=== PATIENT | female | born 1940 | race Two or more races ===

== ENCOUNTER → 2017-04-15 10:11 | Outpatient (CLI) | payer OTHER ==
[~2017-04-15 10:11] MED LIST: ATACAND32 MG; CEFTIN500 MG PO; COREG CR10 MG; CRESTOR10 MG; FLONASE16 G1 NS; FLONASE16 GM; MUCINEX600 MG PO; NORVASC5 MG; SYNTHROID50 MCG
== END | disposition home or self-care (01) ==
LOC: PPHC 10:11
DX: R05 Cough (principal)

== ENCOUNTER 2017-05-12 07:06 | Outpatient (CLI) | payer OTHER | END 2017-05-12 07:51 | disposition home or self-care (01) | LOC: LAB 07:06 | DX: I10 Essential (primary) hypertension (principal); E11.9 Type 2 diabetes mellitus without complications; C73 Malignant neoplasm of thyroid gland; E03.8 Other specified hypothyroidism; D59.8 Other acquired hemolytic anemias ==

== ENCOUNTER 2017-06-12 13:37 | Outpatient (CLI) | payer OTHER | END 2017-06-12 13:39 | disposition home or self-care (01) | LOC: NUCLEAR 13:37 | DX: M81.0 Age-related osteoporosis without current pathological fracture (principal) ==

== ENCOUNTER 2017-09-18 06:51 | Outpatient (CLI) | payer OTHER | END 2017-09-18 06:59 | disposition home or self-care (01) | LOC: LAB 06:51 | DX: C73 Malignant neoplasm of thyroid gland (principal); E03.8 Other specified hypothyroidism; E11.65 Type 2 diabetes mellitus with hyperglycemia; I10 Essential (primary) hypertension; E78.2 Mixed hyperlipidemia ==

== ENCOUNTER 2017-09-18 09:09 | Outpatient (CLI) | payer OTHER | END 2017-09-18 09:19 | disposition home or self-care (01) | LOC: RAD 09:09 | DX: Z96.652 Presence of left artificial knee joint (principal); E07.89 Other specified disorders of thyroid ==

== ENCOUNTER → 2018-03-24 07:02 | Outpatient (CLI) | payer OTHER | END | disposition home or self-care (01) | LOC: LAB 07:02 | DX: C73 Malignant neoplasm of thyroid gland (principal); E11.65 Type 2 diabetes mellitus with hyperglycemia; I10 Essential (primary) hypertension; E03.8 Other specified hypothyroidism; M83.8 Other adult osteomalacia; E20.8 Other hypoparathyroidism ==

== ENCOUNTER 2018-04-16 09:00 | Outpatient (CLI) | payer OTHER | END 2018-04-16 09:07 | disposition home or self-care (01) | LOC: RAD 09:00 | DX: S30.0XXA Contusion of lower back and pelvis, initial encounter (principal); M54.5 Low back pain ==

== ENCOUNTER → 2018-04-16 | Outpatient (CLI) | payer OTHER | END | disposition home or self-care (01) | LOC: NUCLEAR 08:33 | DX: S30.0XXA Contusion of lower back and pelvis, initial encounter (principal); M54.5 Low back pain | CPT/HCPCS: 78306; A9503 ==

== ENCOUNTER → 2018-07-06 | Outpatient (CLI) | payer OTHER | END | disposition home or self-care (01) | LOC: MAMO-SONO 14:15 → SONOGRAMA 14:32 | DX: R22.1 Localized swelling, mass and lump, neck (principal) ==

== ENCOUNTER 2018-07-13 14:23 | Outpatient (CLI) | payer OTHER | END 2018-07-13 14:31 | disposition home or self-care (01) | LOC: RAD 14:23 | DX: M25.562 Pain in left knee (principal) ==

== ENCOUNTER → 2018-08-04 06:41 | Outpatient (CLI) | payer OTHER | END | disposition home or self-care (01) | LOC: LAB 06:41 | DX: E78.2 Mixed hyperlipidemia (principal); C73 Malignant neoplasm of thyroid gland; E03.8 Other specified hypothyroidism; E11.65 Type 2 diabetes mellitus with hyperglycemia ==

== ENCOUNTER 2018-12-01 06:39 | Outpatient (CLI) | payer OTHER | END 2018-12-01 06:44 | disposition home or self-care (01) | LOC: LAB 06:39 | DX: R00.2 Palpitations (principal); E78.2 Mixed hyperlipidemia; E11.9 Type 2 diabetes mellitus without complications; I11.9 Hypertensive heart disease without heart failure ==

== ENCOUNTER 2018-12-07 14:00 | Outpatient (CLI) | payer OTHER | END 2018-12-07 14:02 | disposition home or self-care (01) | LOC: RAD 14:00 | DX: M17.0 Bilateral primary osteoarthritis of knee (principal) ==

== ENCOUNTER 2019-02-22 06:37 | Outpatient (CLI) | payer OTHER | END 2019-02-22 06:53 | disposition home or self-care (01) | LOC: LAB 06:37 | DX: E03.8 Other specified hypothyroidism (principal); C73 Malignant neoplasm of thyroid gland; I10 Essential (primary) hypertension ==

== ENCOUNTER 2019-02-24 14:14 | Outpatient (CLI) | payer OTHER | END 2019-02-24 14:21 | disposition home or self-care (01) | LOC: SONOGRAMA 14:14 → MAMO-SONO 14:15 → SONOGRAMA 14:21 | DX: C73 Malignant neoplasm of thyroid gland (principal) ==

== ENCOUNTER 2019-06-24 06:44 | Outpatient (CLI) | payer OTHER | END 2019-06-24 06:49 | disposition home or self-care (01) | LOC: LAB 06:44 | DX: E78.2 Mixed hyperlipidemia (principal); C73 Malignant neoplasm of thyroid gland; E11.65 Type 2 diabetes mellitus with hyperglycemia ==

== ENCOUNTER 2019-11-29 06:44 | Outpatient (CLI) | payer OTHER | END 2019-11-29 06:53 | disposition home or self-care (01) | LOC: LAB 06:44 | PROVIDERS: ATTEND Internal Medicine Endocrinology, Diabetes & Metabolism | DX: C73 Malignant neoplasm of thyroid gland (principal); E78.2 Mixed hyperlipidemia; I10 Essential (primary) hypertension; E03.8 Other specified hypothyroidism; E11.65 Type 2 diabetes mellitus with hyperglycemia; M83.8 Other adult osteomalacia ==

== ENCOUNTER 2019-12-01 08:27 | Outpatient (CLI) | payer OTHER | END 2019-12-01 08:36 | disposition home or self-care (01) | LOC: SONOGRAMA 08:27 | PROVIDERS: ATTEND Internal Medicine Endocrinology, Diabetes & Metabolism | DX: E03.8 Other specified hypothyroidism (principal); C73 Malignant neoplasm of thyroid gland ==

== ENCOUNTER 2020-01-27 10:27 | Outpatient (CLI) | payer OTHER | END 2020-01-27 10:32 | disposition home or self-care (01) | LOC: MAMO-SONO 10:27 | PROVIDERS: ATTEND Obstetrics & Gynecology | DX: Z12.31 Encounter for screening mammogram for malignant neoplasm of breast (principal); N60.11 Diffuse cystic mastopathy of right breast ==

== ENCOUNTER 2020-03-03 07:26 | Outpatient (CLI) | payer OTHER | END 2020-03-03 07:33 | disposition home or self-care (01) | LOC: LAB 07:26 | PROVIDERS: ATTEND Internal Medicine | DX: I10 Essential (primary) hypertension (principal); M54.5 Low back pain; Z01.810 Encounter for preprocedural cardiovascular examination; E03.8 Other specified hypothyroidism; E78.89 Other lipoprotein metabolism disorders; E11.51 Type 2 diabetes mellitus with diabetic peripheral angiopathy without gangrene; E55.9 Vitamin D deficiency, unspecified; E66.8 Other obesity; G62.89 Other specified polyneuropathies ==

== ENCOUNTER 2020-05-08 13:33 | Outpatient (CLI) | payer OTHER | END 2020-05-08 13:38 | disposition HB | LOC: RAD 13:33 | PROVIDERS: ATTEND Physical Medicine & Rehabilitation | DX: M51.37 Other intervertebral disc degeneration, lumbosacral region (principal); M54.5 Low back pain; M54.16 Radiculopathy, lumbar region ==

== ENCOUNTER 2020-06-14 06:33 | Outpatient (CLI) | payer OTHER | END 2020-06-14 06:38 | disposition home or self-care (01) | LOC: LAB 06:33 | PROVIDERS: ATTEND Internal Medicine | DX: I10 Essential (primary) hypertension (principal); M54.5 Low back pain; E03.8 Other specified hypothyroidism; E78.89 Other lipoprotein metabolism disorders; E55.9 Vitamin D deficiency, unspecified; E66.8 Other obesity; G62.89 Other specified polyneuropathies ==

== ENCOUNTER 2020-06-16 10:15 | Outpatient (CLI) | payer OTHER | END 2020-06-16 15:00 | disposition home or self-care (01) | LOC: LAB 10:15 | PROVIDERS: ATTEND Internal Medicine | DX: I10 Essential (primary) hypertension (principal); M54.5 Low back pain; E03.8 Other specified hypothyroidism; E78.89 Other lipoprotein metabolism disorders; E55.9 Vitamin D deficiency, unspecified; E66.8 Other obesity; G62.89 Other specified polyneuropathies ==

== ENCOUNTER 2020-06-29 16:19 | Outpatient (CLI) | payer OTHER | END 2020-06-29 16:46 | disposition home or self-care (01) | LOC: RAD 16:19 | PROVIDERS: ATTEND Orthopaedic Surgery Adult Reconstructive Orthopaedic Surgery | DX: M17.11 Unilateral primary osteoarthritis, right knee (principal); I11.9 Hypertensive heart disease without heart failure; Z96.652 Presence of left artificial knee joint ==

== ENCOUNTER → 2020-07-19 06:49 | Outpatient (CLI) | payer OTHER | END | disposition home or self-care (01) | LOC: LAB 06:49 | PROVIDERS: ATTEND Orthopaedic Surgery Adult Reconstructive Orthopaedic Surgery | DX: I11.9 Hypertensive heart disease without heart failure (principal); D68.8 Other specified coagulation defects ==

== ENCOUNTER → 2020-09-22 06:52 | Outpatient (CLI) | payer OTHER | END | disposition home or self-care (01) | LOC: LAB 06:52 | PROVIDERS: ATTEND Internal Medicine Endocrinology, Diabetes & Metabolism | DX: C73 Malignant neoplasm of thyroid gland (principal); E11.65 Type 2 diabetes mellitus with hyperglycemia; I10 Essential (primary) hypertension ==

== ENCOUNTER → 2020-11-23 14:21 | Outpatient (CLI) | payer OTHER | END | disposition home or self-care (01) | LOC: RAD 14:21 | PROVIDERS: ATTEND Orthopaedic Surgery Adult Reconstructive Orthopaedic Surgery | DX: M25.562 Pain in left knee (principal); M25.561 Pain in right knee; Z96.653 Presence of artificial knee joint, bilateral ==

== ENCOUNTER → 2020-12-26 06:30 | Outpatient (CLI) | payer OTHER | END | disposition home or self-care (01) | LOC: LAB 06:30 | PROVIDERS: ATTEND Emergency Medicine Pediatric Emergency Medicine | DX: I10 Essential (primary) hypertension (principal); M54.5 Low back pain; E03.8 Other specified hypothyroidism; E78.89 Other lipoprotein metabolism disorders; E55.9 Vitamin D deficiency, unspecified; E66.8 Other obesity; G62.89 Other specified polyneuropathies ==

== ENCOUNTER 2020-12-29 15:26 | Outpatient (CLI) | payer OTHER | END 2020-12-29 15:35 | disposition home or self-care (01) | LOC: RAD 15:26 | PROVIDERS: ATTEND Ophthalmology | DX: R07.89 Other chest pain (principal); Z98.41 Cataract extraction status, right eye; H25.011 Cortical age-related cataract, right eye ==

== ENCOUNTER 2021-01-01 15:01 | Outpatient (CLI) | payer OTHER | END 2021-01-01 15:52 | disposition home or self-care (01) | LOC: LAB 15:01 | PROVIDERS: ATTEND Ophthalmology | DX: D68.8 Other specified coagulation defects (principal); H25.011 Cortical age-related cataract, right eye ==

== ENCOUNTER 2021-01-19 14:05 | Outpatient (CLI) | payer OTHER | END 2021-01-19 14:30 | disposition home or self-care (01) | LOC: PPH VACUNA 14:05 | PROVIDERS: ATTEND Emergency Medicine Pediatric Emergency Medicine | DX: Z23 Encounter for immunization (principal) ==

== ENCOUNTER 2021-02-27 10:42 | Outpatient (CLI) | payer OTHER | END 2021-02-27 13:43 | disposition home or self-care (01) | LOC: MAMO-SONO 10:42 | PROVIDERS: ATTEND Obstetrics & Gynecology | DX: N60.01 Solitary cyst of right breast (principal); R92.1 Mammographic calcification found on diagnostic imaging of breast; N60.11 Diffuse cystic mastopathy of right breast; Z12.31 Encounter for screening mammogram for malignant neoplasm of breast ==

== ENCOUNTER 2021-03-29 06:42 | Outpatient (CLI) | payer OTHER | END 2021-03-29 06:50 | disposition home or self-care (01) | LOC: LAB 06:42 | PROVIDERS: ATTEND Internal Medicine | DX: N39.0 Urinary tract infection, site not specified (principal); B96.4 Proteus (mirabilis) (morganii) as the cause of diseases classified elsewhere; I10 Essential (primary) hypertension; M54.59 Other low back pain; E03.8 Other specified hypothyroidism; E78.89 Other lipoprotein metabolism disorders; E55.9 Vitamin D deficiency, unspecified; E66.8 Other obesity; G62.89 Other specified polyneuropathies ==

== ENCOUNTER 2021-06-25 06:25 | Outpatient (CLI) | payer OTHER | END 2021-06-25 06:26 | disposition home or self-care (01) | LOC: LAB 06:25 | PROVIDERS: ATTEND Internal Medicine | DX: I10 Essential (primary) hypertension (principal); M54.50 Low back pain, unspecified; E03.9 Hypothyroidism, unspecified; E78.9 Disorder of lipoprotein metabolism, unspecified; E55.9 Vitamin D deficiency, unspecified; E66.8 Other obesity; G62.9 Polyneuropathy, unspecified; N39.0 Urinary tract infection, site not specified ==

== ENCOUNTER 2021-08-21 08:00 | Outpatient (CLI) | payer OTHER | END 2021-08-21 08:30 | disposition home or self-care (01) | LOC: PPH VACUNA 08:00 | PROVIDERS: ATTEND Emergency Medicine Pediatric Emergency Medicine | DX: Z23 Encounter for immunization (principal); Z71.85 Encounter for immunization safety counseling ==

== ENCOUNTER → 2021-10-17 06:20 | Outpatient (CLI) | payer OTHER | END | disposition home or self-care (01) | LOC: LAB 06:20 | PROVIDERS: ATTEND Internal Medicine | DX: I10 Essential (primary) hypertension (principal); M54.50 Low back pain, unspecified; E03.9 Hypothyroidism, unspecified; E78.9 Disorder of lipoprotein metabolism, unspecified; E55.9 Vitamin D deficiency, unspecified; E66.8 Other obesity; G62.9 Polyneuropathy, unspecified; N39.0 Urinary tract infection, site not specified; Z12.31 Encounter for screening mammogram for malignant neoplasm of breast; Z13.820 Encounter for screening for osteoporosis; Z12.11 Encounter for screening for malignant neoplasm of colon ==

== ENCOUNTER 2021-10-17 09:56 | Outpatient (CLI) | payer OTHER | END 2021-10-17 09:57 | disposition home or self-care (01) | LOC: NUCLEAR 09:56 | PROVIDERS: ATTEND Internal Medicine | DX: Z13.820 Encounter for screening for osteoporosis (principal); I10 Essential (primary) hypertension; M54.59 Other low back pain; E03.9 Hypothyroidism, unspecified; E78.9 Disorder of lipoprotein metabolism, unspecified; E55.9 Vitamin D deficiency, unspecified; E66.8 Other obesity; G62.9 Polyneuropathy, unspecified; N39.0 Urinary tract infection, site not specified; Z12.31 Encounter for screening mammogram for malignant neoplasm of breast; Z12.11 Encounter for screening for malignant neoplasm of colon ==

== ENCOUNTER 2022-01-17 06:30 | Outpatient (CLI) | payer OTHER | END 2022-01-17 06:31 | disposition home or self-care (01) | LOC: LAB 06:30 | PROVIDERS: ATTEND Internal Medicine | DX: M54.50 Low back pain, unspecified (principal); I10 Essential (primary) hypertension; E03.9 Hypothyroidism, unspecified; E78.9 Disorder of lipoprotein metabolism, unspecified; E55.9 Vitamin D deficiency, unspecified; E66.8 Other obesity; G62.9 Polyneuropathy, unspecified; N39.0 Urinary tract infection, site not specified; Z12.31 Encounter for screening mammogram for malignant neoplasm of breast; Z13.820 Encounter for screening for osteoporosis; Z12.11 Encounter for screening for malignant neoplasm of colon ==

== ENCOUNTER 2022-08-05 06:31 | Outpatient (CLI) | payer OTHER | END 2022-08-05 06:34 | disposition home or self-care (01) | LOC: LAB 06:31 | PROVIDERS: ATTEND Internal Medicine | DX: I10 Essential (primary) hypertension (principal); E03.9 Hypothyroidism, unspecified; E78.9 Disorder of lipoprotein metabolism, unspecified; E55.9 Vitamin D deficiency, unspecified; E66.8 Other obesity; G62.9 Polyneuropathy, unspecified; N39.0 Urinary tract infection, site not specified; Z12.11 Encounter for screening for malignant neoplasm of colon; M54.59 Other low back pain; Z12.31 Encounter for screening mammogram for malignant neoplasm of breast; Z13.820 Encounter for screening for osteoporosis ==

== ENCOUNTER 2022-08-09 16:27 | Outpatient (CLI) | payer OTHER | END 2022-08-09 16:33 | disposition home or self-care (01) | LOC: LAB 16:27 | PROVIDERS: ATTEND Internal Medicine | DX: Z12.11 Encounter for screening for malignant neoplasm of colon (principal) ==

== ENCOUNTER 2022-11-15 06:42 | Outpatient (CLI) | payer OTHER | END 2022-11-15 06:44 | disposition home or self-care (01) | LOC: LAB 06:42 | PROVIDERS: ATTEND Internal Medicine | DX: I10 Essential (primary) hypertension (principal); M54.59 Other low back pain; E03.9 Hypothyroidism, unspecified; E78.9 Disorder of lipoprotein metabolism, unspecified; E55.9 Vitamin D deficiency, unspecified; E66.8 Other obesity; G62.9 Polyneuropathy, unspecified; N39.0 Urinary tract infection, site not specified; Z12.31 Encounter for screening mammogram for malignant neoplasm of breast; Z13.820 Encounter for screening for osteoporosis; Z12.11 Encounter for screening for malignant neoplasm of colon ==

== ENCOUNTER 2023-03-10 06:10 | Outpatient (CLI) | payer OTHER ==
[2023-03-10 07:48] LABS: URINE APPEARANCE Clear; URINE BILIRRUBIN Negative (NEGATIVE); URINE BLOOD Small; URINE COLOR Yellow; URINE GLUCOSE Negative (NEGATIVE); URINE LEUKOCYTE Moderate; URINE NITRATE Negative; URINE PROTEIN Negative (NEGATIVE); URINE UROBILINOGEN 0.2 E.U./dl
[2023-03-10 07:52] LABS: URINE EPITHELIAL CELLS 10.3 uL (0.0-38.8); URINE RBC 7.4 uL (0.0-20.8); URINE WBC 234.6 uL (0.0-23.2)
[2023-03-10 08:01] LABS: HEMOGLOBIN 14.6 g/dL (12.0-15.00); MEAN CELL VOLUME 86.4 fL (80.00-100.00); MEAN CORPUSCULAR HEMOGLOBIN 29.5 pg (27.00-32.0); MEAN CORPUSCULAR HGB CONC 34.1 g/dl (32.0-36.0); PLATELET COUNT 130 K/uL (150-450); RED BLOOD COUNT 4.97 M/uL (4.00-6.00); RED CELL DISTRIBUTION WIDTH 14.1 % (11.5-14.5)
[2023-03-10 08:05] LABS: URINE BACTERIA > 9821.5 uL (0.0-1933)
[2023-03-10 08:56] LABS: ALBUMIN 3.7 gm/dL (3.4-5.0); BILIRUBIN TOTAL 1.21 mg/dL (0.3-1.2); CALCIUM 8.8 mg/dL (8.5-10.1); CHOL HDL RATIO 3.5 (0-5.0); CREATININE SERUM 0.81 mg/dL (0.55-1.02); GFR 67.36; GLOBULINA 3.1 G/DL (2.4-3.5); POTASSIUM 4.1 mEq/L (3.5-5.1); T4 TOTAL 10.63 UG/DL (4.8-13.9); TOTAL PROTEIN 6.8 gm/dL (6.4-8.2); TSH 0.393 uIU/mL (0.358-3.74)
== END 2023-03-10 06:17 | disposition home or self-care (01) ==
LOC: LAB 06:10
PROVIDERS: ATTEND Internal Medicine
DX: I10 Essential (primary) hypertension (principal); M54.50 Low back pain, unspecified; E03.9 Hypothyroidism, unspecified; E78.9 Disorder of lipoprotein metabolism, unspecified; E55.9 Vitamin D deficiency, unspecified; E66.8 Other obesity; G62.9 Polyneuropathy, unspecified; Z12.31 Encounter for screening mammogram for malignant neoplasm of breast; Z13.820 Encounter for screening for osteoporosis; Z12.11 Encounter for screening for malignant neoplasm of colon; N39.0 Urinary tract infection, site not specified

== ENCOUNTER 2023-03-13 11:45 | Outpatient (CLI) | payer OTHER ==
[2023-03-13 13:05] LABS: ob NEGATIVE (NEGATIVE)
== END 2023-03-13 11:46 | disposition home or self-care (01) ==
LOC: LAB 11:45
PROVIDERS: ATTEND Internal Medicine
DX: I10 Essential (primary) hypertension (principal); M54.50 Low back pain, unspecified; E03.9 Hypothyroidism, unspecified; E78.9 Disorder of lipoprotein metabolism, unspecified; E55.9 Vitamin D deficiency, unspecified; E66.8 Other obesity; G62.9 Polyneuropathy, unspecified; N39.0 Urinary tract infection, site not specified; Z12.31 Encounter for screening mammogram for malignant neoplasm of breast; Z13.820 Encounter for screening for osteoporosis; Z12.11 Encounter for screening for malignant neoplasm of colon

== ENCOUNTER → 2023-06-16 07:05 | Outpatient (CLI) | payer OTHER ==
[2023-06-16 08:03] LABS: HEMOGLOBIN 14.5 g/dL (12.0-15.00); MEAN CELL VOLUME 86.1 fL (80.00-100.00); MEAN CORPUSCULAR HEMOGLOBIN 29.7 pg (27.00-32.0); MEAN CORPUSCULAR HGB CONC 34.5 g/dl (32.0-36.0); PLATELET COUNT 133 K/uL (150-450); RED BLOOD COUNT 4.87 M/uL (4.00-6.00); RED CELL DISTRIBUTION WIDTH 13.8 % (11.5-14.5)
[2023-06-16 08:09] LABS: URINE APPEARANCE Clear; URINE BILIRRUBIN Negative (NEGATIVE); URINE BLOOD Small; URINE COLOR Yellow; URINE GLUCOSE Negative (NEGATIVE); URINE LEUKOCYTE Moderate; URINE NITRATE Negative; URINE PROTEIN Negative (NEGATIVE); URINE UROBILINOGEN 0.2 E.U./dl
[2023-06-16 08:13] LABS: URINE EPITHELIAL CELLS 8.9 uL (0.0-38.8); URINE RBC 9.3 uL (0.0-20.8); URINE WBC 120.3 uL (0.0-23.2)
[2023-06-16 08:21] LABS: URINE BACTERIA > 9821.5 uL (0.0-1933)
[2023-06-16 09:14] LABS: ALBUMIN 3.7 gm/dL (3.4-5.0); CALCIUM 8.7 mg/dL (8.5-10.1); CHOL HDL RATIO 3.4 (0-5.0); CREATININE SERUM 0.65 mg/dL (0.55-1.02); GFR 86.84; GLOBULINA 2.9 G/DL (2.4-3.5); POTASSIUM 4.15 mEq/L (3.5-5.1); T4 TOTAL 10.46 UG/DL (4.8-13.9); TOTAL PROTEIN 6.6 gm/dL (6.4-8.2); TSH 0.403 uIU/mL (0.358-3.74)
== END | disposition home or self-care (01) ==
LOC: LAB 07:05
PROVIDERS: ATTEND Internal Medicine
DX: I10 Essential (primary) hypertension (principal); E03.9 Hypothyroidism, unspecified; E78.9 Disorder of lipoprotein metabolism, unspecified; E55.9 Vitamin D deficiency, unspecified; E66.8 Other obesity; G62.9 Polyneuropathy, unspecified; N39.0 Urinary tract infection, site not specified; Z13.820 Encounter for screening for osteoporosis; Z12.11 Encounter for screening for malignant neoplasm of colon

== ENCOUNTER 2023-07-07 09:56 | Emergency (ER) | payer OTHER ==
[~2023-07-07] VITALS: Ht 157.5 cm; Wt 81.6 kg
[2023-07-07] MEDS ORDERED: KETOROLAC TROMETHAMINE 60 MG VIAL IM ONE (10:45)
[2023-07-07] MEDS ORDERED: DICLOFENAC SODI75 MG PO (11:13)
== END 2023-07-07 11:28 | disposition home or self-care (01) ==
LOC: ER 09:56
DX: M54.9 Dorsalgia, unspecified (principal); I10 Essential (primary) hypertension; E03.8 Other specified hypothyroidism
CPT/HCPCS: 72100; 96372; 99283; J1885

== ENCOUNTER → 2024-01-23 06:10 | Outpatient (CLI) | payer OTHER ==
[~2024-01-23 06:10] MED LIST changes: +DICLOFENAC SODI75 MG PO
[2024-01-23 07:06] LABS: HEMOGLOBIN 14.6 g/dL (12.0-15.00); MEAN CELL VOLUME 85.8 fL (80.00-100.00); MEAN CORPUSCULAR HEMOGLOBIN 29.7 pg (27.00-32.0); MEAN CORPUSCULAR HGB CONC 34.6 g/dl (32.0-36.0); RED CELL DISTRIBUTION WIDTH 14.3 % (11.5-14.5)
[2024-01-23 07:10] LABS: PLATELET COUNT 129 K/uL (150-450)
[2024-01-23 07:10] LABS: URINE APPEARANCE Clear; URINE BILIRRUBIN Negative (NEGATIVE); URINE BLOOD Small; URINE COLOR Yellow; URINE GLUCOSE Negative (NEGATIVE); URINE KETONE Trace (NEGATIVE); URINE LEUKOCYTE Moderate; URINE NITRATE Positive; URINE PROTEIN Negative (NEGATIVE); URINE UROBILINOGEN 0.2 E.U./dl
[2024-01-23 07:14] LABS: URINE CAST 1.52 uL (0.0-1.40); URINE EPITHELIAL CELLS 64.9 uL (0.0-38.8); URINE WBC 268.9 uL (0.0-23.2)
[2024-01-23 07:29] LABS: URINE BACTERIA > 9821.5 uL (0.0-1933)
[2024-01-23 08:08] LABS: ALBUMIN 3.9 gm/dL (3.4-5.0); BILIRUBIN TOTAL 1.32 mg/dL (0.3-1.2); CALCIUM 8.4 mg/dL (8.5-10.1); CHOL HDL RATIO 2.8 (0-5.0); CREATININE SERUM 0.74 mg/dL (0.55-1.02); GFR 74.59; GLOBULINA 2.8 G/DL (2.4-3.5); PHOSPHOROUS 3.7 mg/dL (2.5-4.9); POTASSIUM 3.84 mEq/L (3.5-5.1); T4 TOTAL 8.15 UG/DL (4.8-13.9); TOTAL PROTEIN 6.7 gm/dL (6.4-8.2); TSH 3.22 uIU/mL (0.358-3.74)
== END | disposition home or self-care (01) ==
LOC: LAB 06:10
PROVIDERS: ATTEND Internal Medicine
DX: E03.9 Hypothyroidism, unspecified (principal); I10 Essential (primary) hypertension; E78.9 Disorder of lipoprotein metabolism, unspecified; E55.9 Vitamin D deficiency, unspecified; G62.9 Polyneuropathy, unspecified; Z12.11 Encounter for screening for malignant neoplasm of colon

== ENCOUNTER → 2024-04-23 06:36 | Outpatient (CLI) | payer OTHER ==
[2024-04-23 07:10] LABS: HEMATOCRIT 44.2 % (36.0-45.00); HEMOGLOBIN 15.1 g/dL (12.0-15.00); MEAN CELL VOLUME 86.9 fL (80.00-100.00); MEAN CORPUSCULAR HEMOGLOBIN 29.6 pg (27.00-32.0); MEAN CORPUSCULAR HGB CONC 34.1 g/dl (32.0-36.0); PLATELET COUNT 139 K/uL (150-450); RED BLOOD COUNT 5.09 M/uL (4.00-6.00); RED CELL DISTRIBUTION WIDTH 13.9 % (11.5-14.5)
[2024-04-23 08:03] LABS: ALBUMIN 3.8 gm/dL (3.4-5.0); BILIRUBIN TOTAL 1.4 mg/dL (0.3-1.2); CALCIUM 8.6 mg/dL (8.5-10.1); CHOL HDL RATIO 2.7 (0-5.0); CREATININE SERUM 0.8 mg/dL (0.55-1.02); GFR 68.17; GLOBULINA 3.1 G/DL (2.4-3.5); POTASSIUM 4.12 mEq/L (3.5-5.1); T4 TOTAL 12.81 UG/DL (4.8-13.9); TOTAL PROTEIN 6.9 gm/dL (6.4-8.2); TSH 0.477 uIU/mL (0.358-3.74)
== END | disposition home or self-care (01) ==
LOC: LAB 06:36
PROVIDERS: ATTEND Internal Medicine
DX: E55.9 Vitamin D deficiency, unspecified (principal); I10 Essential (primary) hypertension; E03.9 Hypothyroidism, unspecified; E78.9 Disorder of lipoprotein metabolism, unspecified; E66.89 Other obesity not elsewhere classified; G62.9 Polyneuropathy, unspecified; Z12.11 Encounter for screening for malignant neoplasm of colon

== ENCOUNTER → 2024-09-09 06:30 | Outpatient (CLI) | payer OTHER ==
[2024-09-09 07:16] LABS: BASO % 0.6 % (0.1-1.2); EOS # 0.22 (0.04-0.54); EOS % 2.8 % (0.7-7.0); HEMATOCRIT 43.5 % (34.1-44.9); HEMOGLOBIN 14.6 g/dL (11.2-15.7); LYMPH # 2.03 (1.18-3.74); LYMPH % 25.9 % (19.3-53.1); MEAN CORPUSCULAR HEMOGLOBIN 28.6 pg (25.6-32.2); MONO # 0.62 (0.24-0.82); MONO % 7.9 % (4.7-12.5); NEUT % 62.4 % (34.0-71.1); PLATELET COUNT 149 K/uL (163-369); RED CELL DISTRIBUTION WIDTH 13.4 % (11.6-14.4)
[2024-09-09 07:22] LABS: URINE EPITHELIAL CELLS 34.8 uL (0.0-38.8); URINE RBC 10.9 uL (0.0-20.8); URINE WBC 134.7 uL (0.0-23.2)
[2024-09-09 07:26] LABS: URINE BILIRRUBIN NEGATIVE (NEGATIVE); URINE BLOOD TRACE; URINE GLUCOSE NEGATIVE (NEGATIVE); URINE KETONE NEGATIVE (NEGATIVE); URINE LEUKOCYTE SMALL; URINE NITRATE POSITIVE; URINE PROTEIN NEGATIVE (NEGATIVE); URINE UROBILINOGEN 0.2 E.U./dl
[2024-09-09 07:33] LABS: URINE APPEARANCE CLEAR; URINE COLOR YELLOW
[2024-09-09 07:34] LABS: URINE BACTERIA > 9821.5 uL (0.0-1933); URINE CAST 0.14 uL (0.0-1.40)
[2024-09-09 08:42] LABS: ALBUMIN 3.8 gm/dL (3.4-5.0); BILIRUBIN TOTAL 1.43 mg/dL (0.3-1.2); CALCIUM 8.5 mg/dL (8.5-10.1); CHOL HDL RATIO 3.7 (0-5.0); CREATININE SERUM 0.81 mg/dL (0.55-1.02); GFR 67.04; POTASSIUM 4.25 mEq/L (3.5-5.1); T4 TOTAL 9.83 UG/DL (4.8-13.9); TOTAL PROTEIN 6.8 gm/dL (6.4-8.2); TSH 1.03 uIU/mL (0.358-3.74)
== END | disposition home or self-care (01) ==
LOC: LAB 06:30
PROVIDERS: ATTEND Internal Medicine
DX: I10 Essential (primary) hypertension (principal); E03.9 Hypothyroidism, unspecified; E78.9 Disorder of lipoprotein metabolism, unspecified; E55.9 Vitamin D deficiency, unspecified; G62.9 Polyneuropathy, unspecified; Z12.11 Encounter for screening for malignant neoplasm of colon

== ENCOUNTER 2025-01-11 07:00 | Outpatient (CLI) | payer OTHER ==
[2025-01-11 07:40] LABS: BASO % 0.5 % (0.1-1.2); EOS # 0.22 (0.04-0.54); EOS % 2.5 % (0.7-7.0); LYMPH # 1.86 (1.18-3.74); LYMPH % 21.2 % (19.3-53.1); MEAN PLATELET VOLUME 11.90 fl (9.4-12.4); MONO # 0.60 (0.24-0.82); MONO % 6.8 % (4.7-12.5); NEUT # 6.02 (1.56-6.13); NEUT % 68.7 % (34.0-71.1); RED CELL DISTRIBUTION WIDTH 13.3 % (11.6-14.4)
[2025-01-11 08:09] LABS: ALT/SGPT 28.0 U/L (12-78); AST/SGOT 20.0 U/L (15-37); BILIRUBIN TOTAL 1.17 mg/dL (0.3-1.2); BUN CREA RATIO 19.0 (7.0-25.0); CREATININE SERUM 1.0 mg/dL (0.55-1.02); GFR 52.57; GLOBULINA 2.9 G/DL (2.4-3.5); GLUCOSE FASTING 114.0 mg/dL (65-100); OSMOLALITY SERUM 290.0 MOSM/KG (275-295)
[2025-01-11 08:14] LABS: URINE APPEARANCE Cloudy; URINE BILIRRUBIN Negative (NEGATIVE); URINE BLOOD Small; URINE COLOR Dark Yellow; URINE GLUCOSE Negative (NEGATIVE); URINE KETONE Negative (NEGATIVE); URINE LEUKOCYTE Moderate; URINE NITRATE Positive; URINE PROTEIN Negative (NEGATIVE); URINE UROBILINOGEN 1.0 E.U./dl
[2025-01-11 08:17] LABS: URINE EPITHELIAL CELLS 27.9 uL (0.0-38.8); URINE RBC 12.3 uL (0.0-20.8); URINE WBC 137.6 uL (0.0-23.2)
[2025-01-11 08:30] LABS: TYPE CELLS RENAL TUBULAR; URINE BACTERIA > 9821.5 uL (0.0-1933); URINE CAST 0.29 uL (0.0-1.40)
== END 2025-01-11 07:05 | disposition home or self-care (01) ==
LOC: LAB 07:00
PROVIDERS: ATTEND Internal Medicine
DX: I10 Essential (primary) hypertension (principal); E03.9 Hypothyroidism, unspecified; E78.9 Disorder of lipoprotein metabolism, unspecified; E55.9 Vitamin D deficiency, unspecified; G62.9 Polyneuropathy, unspecified; Z12.11 Encounter for screening for malignant neoplasm of colon